=== PATIENT | male | born 1985 | race Two or more races ===

== ENCOUNTER 2024-03-15 09:11 | Emergency (ER) | payer OTHER ==
[~2024-03-15] VITALS: Ht 180.3 cm; Wt 90.7 kg
[2024-03-15 09:56] LABS: CREATININE 0.8 mg/dL (0.5-1.3); POTASSIUM 3.8 mmol/L (3.5-5.1)
[2024-03-15 09:59] LABS: HEMATOCRIT 49.2 % (42-54); MEAN CORPUSCULAR HEMOGLOBIN 27.4 pg (27.0-33.0); MEAN CORPUSCULAR HGB CONC 33.7 g/dL (32.0-36.0); MEAN CORPUSCULAR VOLUME 81.2 fL (79-99); RED BLOOD CELL COUNT(AUTO) 6.06 MIL/uL (4.50-6.20); RED CELL DISTRIBUTION WIDTH 12.9 % (11.0-15.5); WHITE BLOOD COUNT (AUTO) 5.7 K/uL (4.8-10.8)
[2024-03-15] MEDS: MORPHINE 4 MG SYG IVP ONE (10:10)
[2024-03-15] MEDS: ONDANSETRON 4MG INJ IVP ONE (10:10)
[2024-03-15] MEDS ORDERED: METH4TAB3 PO (12:20)
[2024-03-15] MEDS ORDERED: DOCU-116 PO (12:20)
[2024-03-15 12:21] VITALS: BP 124/91; PULSE 83; RESP 16; O2SAT 98
[2024-03-15] MEDS: KETOROLAC 30MG VIAL (30MG/ML) IVP ONE (12:21)
== END 2024-03-15 12:30 | disposition home or self-care (01) ==
LOC: EDH 09:11
DX: K62.89 Other specified diseases of anus and rectum (principal); K57.30 Diverticulosis of large intestine without perforation or abscess without bleeding
CPT/HCPCS: 99285; 96374; 72193; 96375; 82270; 80048; 85027; 36415; J2405; J2270; J1885

== ENCOUNTER 2024-04-11 07:49 | Day surgery (SDC) | payer OTHER ==
[2024-04-11] VITALS (13 sets, daily range): BP systolic 113–145; BP diastolic 71–98; PULSE 66–82; RESP 15–16
[~2024-04-11] VITALS: Ht 180.3 cm; Wt 89.4 kg
[2024-04-11] MEDS: 0.9%NACL 1000ML 1,000 ML IV ONE (08:45)
[2024-04-11] MEDS ORDERED: PROPOFOL 10 MG/ML 20ML VIAL IV ONE (10:50)
== END 2024-04-11 12:20 | disposition home or self-care (01) ==
LOC: ENDO 07:49 → DAH 07:49 → ENDO 12:20
PROVIDERS: ATTEND Internal Medicine Gastroenterology
DX: R93.2 Abnormal findings on diagnostic imaging of liver and biliary tract (principal); K62.89 Other specified diseases of anus and rectum; K92.1 Melena; K64.0 First degree hemorrhoids; K62.1 Rectal polyp
CPT/HCPCS: 45338; 45331; J7030; J2704; A4620; A4215 ×2; A4223; A4222; A4221; A4663; A4606; J3490

== ENCOUNTER 2024-07-26 08:08 | Day surgery (SDC) | payer OTHER ==
[~2024-07-26] VITALS: Ht 180.3 cm; Wt 89.4 kg
[2024-07-26] VITALS (11 sets, daily range): BP systolic 113–141; BP diastolic 60–95; PULSE 66–81; RESP 14–16; TEMP 97.1–97.8
[2024-07-26] MEDS: 0.9%NACL 1000ML 1,000 ML IV ONE (08:45)
[2024-07-26] MEDS ORDERED: DILTIAZEM 2% TP (08:58)
[2024-07-26] MEDS ORDERED: BOTULINUM TOXIN TYPE A 100 UNITS/VIAL INJ ONE (09:08)
[2024-07-26] MEDS ORDERED: LIDOCAINE PF 100MG/5ML (2%) SYRINGE 5ML ONE (09:29)
[2024-07-26] MEDS ORDERED: proPOFol 10 MG/ML 20ML VIAL IV ONE ×2 (09:29)
== END 2024-07-26 10:54 | disposition home or self-care (01) ==
LOC: DAH 08:08
PROVIDERS: ATTEND Surgery
DX: K60.0 Acute anal fissure (principal); K62.89 Other specified diseases of anus and rectum
CPT/HCPCS: 45330; 45335; A4606; J0585; J2001; J2704; J7030; A4215; A4221; A4222; A4223; A4615; A4663; J3490

== ENCOUNTER 2024-10-06 20:42 | Emergency (ER) | payer OTHER ==
[~2024-10-06] VITALS: Ht 180.3 cm; Wt 93.4 kg
[~2024-10-06 20:42] MED LIST: DILTIAZEM 2% TP
--- NOTE | 2024-10-06 20:47 | NUR ---
UA CUP PROVIDED
[2024-10-06 21:51] LABS: BASOPHILS # (AUTO) 0.04 K/uL (0.00-0.20); BASOPHILS % (AUTO) 0.5 % (0.0-5.0); EOSINOPHILS # (AUTO) 0.27 K/uL (0.00-0.70); EOSINOPHILS % (AUTO) 3.7 % (0.0-8.0); HEMATOCRIT 44.9 % (42-54); IMMATURE GRANULOCYTE ABSOLUTE 0.01 K/uL (0-1); LYMPHOCYTES # (AUTO) 1.9 K/uL (1.0-4.8); LYMPHOCYTES % (AUTO) 26.3 % (21.0-51.0); MEAN CORPUSCULAR HEMOGLOBIN 27.2 pg (27.0-33.0); MEAN CORPUSCULAR HGB CONC 34.1 g/dL (32.0-36.0); MEAN CORPUSCULAR VOLUME 79.8 fL (79-99); MONOCYTES # (AUTO) 0.7 K/uL (0.1-1.0); MONOCYTES % (AUTO) 9.5 % (3.0-13.0); NEUTROPHILS # (AUTO) 4.4 K/uL (1.8-7.7); NEUTROPHILS % (AUTO) 59.9 % (40.0-77.0); PLATELET COUNT (AUTO) 299 K/uL (130-400); RED BLOOD CELL COUNT(AUTO) 5.63 MIL/uL (4.50-6.20); RED CELL DISTRIBUTION WIDTH 12.5 % (11.0-15.5); WHITE BLOOD COUNT (AUTO) 7.3 K/uL (4.8-10.8)
[2024-10-06 21:56] VITALS: BP 145/81; PULSE 88; RESP 16; TEMP 98.3; O2SAT 98
--- NOTE | 2024-10-06 21:56 | HMCIMG ---
CT HEAD/BRAIN W/O CONTRAST CLINICAL HISTORY: persistent dizziness with headache COMPARISON: None TECHNIQUE: Multiple sequential axial images of the head were obtained from the base of the skull through vertex. CT was performed with one or more of the following dose reduction techniques: automated exposure control, adjustment of the mA and/or kV according to patient size, or use of iterative reconstruction technique FINDINGS: The brain parenchyma and CSF spaces are unremarkable. The orbital contents, paranasal sinuses and mastoid air cells are within normal limits. The calvarium is intact. IMPRESSION: Normal study
[2024-10-06 22:06] LABS: CREATININE 0.9 mg/dL (0.5-1.3); POTASSIUM 3.8 mmol/L (3.5-5.1)
[2024-10-06] MEDS ORDERED: MECL-302 PO (22:17)
[2024-10-06] MEDS ORDERED: KETO10TA2 PO (22:17)
--- NOTE | 2024-10-06 22:17 | ERN ---
General Chief Complaint: Dizzy/Light Headed Stated Complaint: DIZZINESS, HEADACHE Time Seen by MD: 20:47 Time Seen by Midlevel: 20:47 Source: patient History of Present Illness Initial Comments Patient is a 39-year-old male with no significant past medical history presenting to the emergency department with dizziness and a frontal headache. Patient states that his symptoms started four days ago after flying to [place]. The symptoms started after he landed. Initially the symptoms started with right ear pain and then they progressed into a frontal headache followed by dizziness. The dizziness is worse with head movement. He denies any vision changes, nausea, vomiting, or any other symptoms at this time. Allergies: Coded Allergies: No Known Drug Allergies (Unverified Allergy, Unknown, 03/15/24) Home Meds Active Scripts Meclizine HCl (Meclizine HCl) 25 Mg Tablet, 25 MG PO BID for vertigo for 7 Days, #14 TAB 0 Refills Prov:ARLETTE LAWSON 10/06/24 Ketorolac Tromethamine (Ketorolac Tromethamine) 10 Mg Tablet, 10 MG PO BID for 5 Days, #1 TAB Prov:ARLETTE LAWSON 10/06/24 Reported Medications [Diltiazem [place] 2%] No Conflict Check, 2 OINT TP TID 07/26/24 Past Medical History Past Medical History: No Pertinent History Past Surgical History: Other Surgical History Other: RECTAL SX ROS Dictation CONSTITUTIONAL: Negative except for HPI HEAD/FACE: Negative except for HPI EENT: Negative except for HPI RESPIRATORY: Negative except for HPI GASTROINTESTINAL/ABDOMINAL: Negative except for HPI GENITOURINARY: Negative except for HPI MUSCULOSKELETAL: Negative except for HPI INTEGUMENTARY: Negative except for HPI NEUROLOGICAL/PSYCH: Negative except for HPI HEMATOLOGIC/LYMPHATIC: Negative except for HPI All Systems Negative, Except as noted above. 13 point review of systems assessed and all negative except for above. Physical Exam Physical Exam Dictation Vital Signs reviewed General Appearance: Alert, oriented x 3, no acute distress, well developed, nourished. Head and Face: non-traumatic. Eyes: PERRL, pink conjunctivas, eyelid no trauma, anterior chamber with arcus senilis. Ears: Unable to visualize right tympanic membrane secondary to cerumen impaction, left tympanic membrane is visualized and does not show any evidence of infection Nose: No discharge, no bleeding. Oropharynx: Mouth normal, tongue pink, pharynx clear,no erythema, tonsils no exudates, no abscesses noted, mucous membrane moist Neck: Supple, non-tender, no thyromegaly, no masses, no JVD, no bruits Breast:Deferred Chest:No tenderness, no crepitus, no paradoxical movement, no retractions Lungs:Clear, well-ventilated, symmetric, no rales, no wheezing, no rhonchi, no stridor, good breath sounds bilaterally Heart: Regular rate, regular rhythm, no murmur, no gallops Vascular: no peripheral edema, Abdomen: Soft, positive bowel sounds, nondistended, no guarding, nontender, no rebound, no masses no hepatomegaly, no splenomegaly, no Power's sign, no hernias. Rectal: Deferred Genital: Deferred Neurological: Normal speech, motor function intact, sensory function intact Musculoskeletal: Neck nontender, full range of motion, back nontender, full range of motion, Extremities: nontender, full range of motion Skin: Color pink, dry, no turgor, no rash, no lacerations, no abrasions, no contusions. Lymphatic: Deferred Results Laboratory and Microbiology Lab and Micro Result Laboratory Tests Test 10/06/24 21:43 White Blood Count 7.3 K/uL (4.8-10.8) Red Blood Count 5.63 MIL/uL (4.50-6.20) Hemoglobin 15.3 g/dL (14.0-18.0) Hematocrit 44.9 % (42-54) Mean Corpuscular Volume 79.8 fL (79-99) Mean Corpuscular Hemoglobin 27.2 pg (27.0-33.0) Mean Corpuscular Hemoglobin Concent 34.1 g/dL (32.0-36.0) Red Cell Distribution Width 12.5 % (11.0-15.5) Platelet Count 299 K/uL (130-400) Mean Platelet Volume 9.3 fL (7.5-10.5) Immature Granulocyte % (Auto) 0.1 % (0-1) Neutrophils (%) (Auto) 59.9 % (40.0-77.0) Lymphocytes (%) (Auto) 26.3 % (21.0-51.0) Monocytes (%) (Auto) 9.5 % (3.0-13.0) Eosinophils (%) (Auto) 3.7 % (0.0-8.0) Basophils (%) (Auto) 0.5 % (0.0-5.0) Neutrophils # (Auto) 4.4 K/uL (1.8-7.7) Lymphocytes # (Auto) 1.9 K/uL (1.0-4.8) Monocytes # (Auto) 0.7 K/uL (0.1-1.0) Eosinophils # (Auto) 0.27 K/uL (0.00-0.70) Basophils # (Auto) 0.04 K/uL (0.00-0.20) Absolute Immature Granulocyte (auto 0.01 K/uL (0-1) Nucleated Red Blood Cells 0.0 % (0.0-0.19) Sodium Level 142 mmol/L (136-145) Potassium Level 3.8 mmol/L (3.5-5.1) Chloride Level 105 mmol/L (101-111) Carbon Dioxide Level 30 mmol/L (21-32) Blood Urea Nitrogen 7 mg/dL (7-18) Creatinine 0.9 mg/dL (0.5-1.3) Glomerular Filtration Rate Calc 111 mL/min (>90) Random Glucose 92 mg/dL (70-105) Total Calcium 8.7 mg/dL (8.5-10.1) Labs Reviewed?: Yes MDM MDM: Patient is a 39-year-old male with no significant past medical history presenting to the emergency department with dizziness and a frontal headache. Patient states that his symptoms started four days ago after flying to [place]. The symptoms started after he landed. Initially the symptoms started with right ear pain and then they progressed into a frontal headache followed by dizziness. The dizziness is worse with head movement. He denies any vision changes, nausea, vomiting, or any other symptoms at this time. On physical examination patient is in no acute distress. Patient is alert and oriented x4 with a GCS of 15. His ENT examination is remarkable for a right cerumen impaction. However, given his clinical presentation of dizziness and a headache a CT scan of the head was ordered to rule out any intracranial abno rmality. His CBC and chemistries are unremarkable. His CT scan does not show any acute injury or abnormality. Patient was given meclizine in the ER and does report feeling improved. I advised the patient that this may be related to his cerumen impaction. He will need to see his primary care doctor and possibly Neurology for outpatient evaluation. Patient agrees with plan and is comfortable for discharge at this time. Differential diagnosis: Vertigo, cerumen impaction, intracranial bleed There are no social concerns with this patient. Prescription drug management Prescriptions will include: None Medical management and examination interpretation discussions were had by me with other qualified healthcare professionals as indicated for the patient's c are. ED Course Orders Procedure Category Date Status Time Cbc With Differential LAB 10/06/24 Complete 21: Basic Metabolic Panel LAB 10/06/24 Complete 21: Ct Head/Brain W/O CT 10/06/24 Resulted Contrast 21: Ketorolac PHA 10/06/24 Complete Tromethamine 30mg/Ml 22:30 Meclizine Hcl 25 Mg PHA 10/06/24 Complete (Antivert 25 Mg) 22:30 Current Medications Medications (Trade) Dose Ordered Sig/Christos Route PRN Reason Start Time Stop Time Status Last Admin Dose Admin Ketorolac Tromethamine (toRADol) 30 mg ONCE ONCE IM 10/06/24 22:30 10/06/24 22:31 DC 10/06/24 22:20 Meclizine HCl (ANTIvert 25 mg) 25 mg ONCE ONCE PO 10/06/24 22:30 10/06/24 22:31 DC 10/06/24 22:20 Vital Signs Date Time Temp Pulse Resp B/P (MAP) Pulse Ox O2 Delivery O2 Flow Rate FiO2 10/06/24 21:56 98.2 88 16 145/81 98 Room Air* 0 21 10/06/24 20:44 97.5 92 16 151/96 100 Room Air [place] [id number] [place] [id number] IMAGING REPORT Signed PATIENT: JEFFRY EMERSON MR#: [id number] : 1985 SEX: M AGE: 39 LOCATION: [facility] ORDER 00 STATUS: REG ER REPORT#: [id number] SERVICE 00 REASON: persistent dizziness with headache ORDERING PHYSICIAN: ARLETTE LAWSON PROCEDURE: HEAD WO - CT HEAD/BRAIN W/O CONTRAST CT HEAD/BRAIN W/O CONTRAST CLINICAL HISTORY: persistent dizziness with headache COMPARISON: None TECHNIQUE: Multiple sequential axial images of the head were obtained from the base of the skull through vertex. CT was performed with one or more of the following dose reduction techniques: automated exposure control, adjustment of the mA and/or kV according to patient size, or use of iterative reconstruction technique FINDINGS: The brain parenchyma and CSF spaces are unremarkable. The orbital contents, paranasal sinuses and mastoid air cells are within normal limits. The calvarium is intact. IMPRESSION: Normal study DICTATED BY: VANI JON DO DATE: 10/06/242152 ELECTRONICALLY SIGNED BY: VANI JON DO DATE: 10/06/242155 DX & DISP Disposition: Discharge Departure Impression: Primary Impression: Tension headache Additional Impression: Vertigo Condition: Stable Scripts Meclizine HCl (Meclizine HCl) 25 Mg Tablet 25 MG PO BID for vertigo for 7 Days, #14 TAB 0 Refills Prov: ARLETTE LAWSON 10/06/24 Ketorolac Tromethamine (Ketorolac Tromethamine) 10 Mg Tablet 10 MG PO BID for 5 Days, #1 TAB Prov: ARLETTE LAWSON 10/06/24 Referrals: TIFFANIE LANTIGUA MD (PCP) PRANAV WHARTON MD Time of Disposition: 22:16 I have reviewed the case, and I agree with, Diagnosis and Plan I performed the substantive portion of the visit. I have reviewed and personally made and approve the management plan that is documented in the note by myself or the ARIADNE. I acknowledge for responsibility for the patient's management plan. ARLETTE LAWSON Oct 06, 2024 22:17
[2024-10-06] MEDS: mecliZINE HCL 25 MG TABLET PO ONE (22:20)
[2024-10-06] MEDS: ketOROlac 30MG VIAL (30MG/ML) IM ONE (22:20)
== END 2024-10-06 22:45 | disposition home or self-care (01) ==
LOC: EDH 20:42
DX: G44.209 Tension-type headache, unspecified, not intractable (principal); R42 Dizziness and giddiness; Z79.899 Other long term (current) drug therapy; Z98.890 Other specified postprocedural states
CPT/HCPCS: 99285; 70450; 80048; 85025; 36415; 96372; J1885

== ENCOUNTER 2024-10-08 15:02 | Emergency (ER) | payer OTHER ==
[~2024-10-08] VITALS: Ht 180.3 cm; Wt 93.4 kg
[~2024-10-08 15:02] MED LIST changes: +KETO10TA2 PO; +MECL-302 PO
[2024-10-08] MEDS ORDERED: MECL-262 PO (15:41)
--- NOTE | 2024-10-08 15:41 | ERN ---
General Chief Complaint: Earache Stated Complaint: EAR PAIN Time Seen by MD: 15:04 Source: patient History of Present Illness Initial Comments PATIENT IS A 39-YEAR-OLD MALE COMING IN TO BE EVALUATED FOR RIGHT EAR DISCOMFORT. PATIENT STATES HE WAS TOLD HE HAD A CERUMEN IMPACTION HAS BEEN USING DEBROX BUT HAS NOT WORKED. Allergies: Coded Allergies: No Known Drug Allergies (Unverified Allergy, Unknown, 03/15/24) Home Meds Active Scripts Meclizine HCl (Meclizine HCl) 25 Mg Tablet, 25 MG PO BID for vertigo for 7 Days, #14 TAB 0 Refills Prov:ARLETTE LAWSON 10/06/24 Ketorolac Tromethamine (Ketorolac Tromethamine) 10 Mg Tablet, 10 MG PO BID for 5 Days, #1 TAB Prov:ARLETTE LAWSON 10/06/24 Reported Medications [Diltiazem [place] 2%] No Conflict Check, 2 OINT TP TID 07/26/24 Past Medical History Past Medical History: No Pertinent History Past Surgical History: Other Surgical History Other: RECTAL SX ROS Dictation CONSTITUTIONAL: NO CHILLS, NO FEVER, NO WEAKNESS, NO DIAPHORESIS, NO MALAISE. HEAD/FACE: NO SIGNS OF TRAUMA. EENT: NO EYE PAIN, NO BLURRED VISION, NO TEARING, NO DOUBLE VISION, EAR PAIN, NO EAR DISCHARGE, NO NOSE PAIN, NO NASAL CONGESTION, NO THROAT PAIN, NO THROAT SWELLING, NO MOUTH PAIN. RESPIRATORY: NO COUGH, NO ORTHOPNEA, NO SOB, NO STRIDOR, NO WHEEZING. CARDIOVASCULAR: NO CHEST PAIN, NO EDEMA, NO PALPITATIONS, NO SYNCOPE. GASTROINTESTINAL/ABDOMINAL: NO ABDOMINAL PAIN, NO CONSTIPATION, NO DIARRHEA, NO NAUSEA, NO VOMITING. GENITOURINARY: NO ABNORMAL DISCHARGE, NO DYSURIA, NO FREQUENT URINATION, NO HEMATURIA. NO COMPLAINTS OF PAIN IN THE GENITALS. MUSCULOSKELETAL: NO BACK PAIN, NO GOUT, NO JOINT PAIN, NO JOINT SWELLING, NO MUSCLE PAIN, NO MUSCLE STIFFNESS, NO NECK PAIN. INTEGUMENTARY: NO CHANGE IN COLOR, NO CHANGE IN HAIR/NAILS, NO DRYNESS, NO LESION, NO LUMPS, NO RASH. NEUROLOGICAL/PSYCH: NO ANXIETY, NOT DEPRESSED, NO EMOTIONAL PROBLEM, NO HEADACHE, NO NUMBNESS, NO PRE-EXISTING DEFICIT, NO HISTORY OF SEIZURES, NO TREMORS, NO WEAKNESS. HEMATOLOGIC/LYMPHATIC: NOT ANEMIC, NO HISTORY OF BLOOD CLOTS, NO APPARENT BLEEDING, NO BRUISING, GLANDS NOT SWOLLEN. ALL SYSTEMS NEGATIVE, EXCEPT NOTED. Physical Exam Physical Exam Dictation VITAL SIGNS: REVIEWED. GENERAL APPEARANCE: ALERT, ORIENTED X3, NO ACUTE DISTRESS, OBESE. HEAD AND FACE: NON-TRAUMATIC. EYES: PERRL, PINK CONJUNCTIVAS, EYELID NO TRAUMA, ANTERIOR CHAMBER CLEAR. EARS: PINNAS INTACT AND NO SIGNS OF TRAUMA OR ERYTHEMA. EAR CANALS CLEAR AND NO DISCHARGE. RIGHT CERUMEN IMPACTION NOSE: NO DISCHARGE, NO BLEEDING. OROPHARYNX: MOUTH NORMAL, TEETH NO CARIES, TONGUE PINK. PHARYNX CLEAR, NO ERYTHEMA. TONSILS NO EXUDATES, NO ABSCESSES NOTED. MUCOUS MEMBRANE MOIST. NECK: SUPPLE, NON-TENDER, NO THYROMEGALY, NO MASSES, NO JVD, NO BRUITS. BREAST: DEFERRED. CHEST: NO TENDERNESS, NO CREPITUS, NO PARADOXICAL MOVEMENT, NO RETRACTIONS. LUNGS: CLEAR, WELL-VENTILATED, SYMMETRIC, NO RALES, NO WHEEZING, NO RHONCHI, NO STRIDOR, GOOD BREATH SOUNDS BILATERALLY. HEART: REGULAR RATE, REGULAR RHYTHM, NO MURMUR, NO GALLOPS. VASCULAR: NO PERIPHERAL EDEMA. ABDOMEN: SOFT, POSITIVE BOWEL SOUNDS, NONDISTENDED, NO GUARDING, NONTENDER, NO REBOUND, NO MASSES NO HEPATOMEGALY, NO SPLENOMEGALY, NO HAMPTON'S SIGN, NO HERNIAS. RECTAL: DEFERRED. GENITAL: DEFERRED. NEUROLOGICAL: NORMAL SPEECH, GROSS MOTOR FUNCTION INTACT, GROSS SENSORY FUNCTION INTACT. MUSCULOSKELETAL: NECK NONTENDER, FULL RANGE OF MOTION, BACK NONTENDER, FULL RANGE OF MOTION. EXTREMITIES: NONTENDER, FULL RANGE OF MOTION. SKIN: COLOR PINK, DRY, NO TURGOR, NO RASH, NO LACERATIONS, NO ABRASIONS, NO CONTUSIONS. LYMPHATICS: DEFERRED. MDM MDM: DIFFERENTIAL DIAGNOSIS: CERUMEN IMPACTION, EAR PAIN, PATIENT IS A 39-YEAR-OLD MALE COMING IN TO BE EVALUATED FOR RIGHT EAR DISCOMFORT. ON PHYSICAL EXAM THERE IS RIGHT CERUMEN IMPACTION. YOUR WASHINGS WERE ATTEMPTED BUT WERE UNSUCCESSFUL. I ADVISED HIM APPROPRIATE FOLLOW UP WITH ENT WE WILL REFER HIM TO A LOCAL ENT. ED Course Vital Signs Date Time Temp Pulse Resp B/P (MAP) Pulse Ox O2 Delivery O2 Flow Rate FiO2 10/08/24 15:04 98.2 86 18 145/84 99 DX & DISP Disposition: Discharge Departure Impression: Primary Impression: Cerumen impaction Condition: Stable Scripts Meclizine HCl (Antivert) 25 Mg Tab.chew 25 MG PO BID PRN for VERTIGO for 3 Days, #6 TAB.CHEW Prov: CHICHI DIXON MD 10/08/24 Additional Instructions: FOLLOW-UP WITH PRIMARY CARE PROVIDER IN 1 TO 2 DAYS. TAKE MEDICATIONS DIRECTED HERE IN THE EMERGENCY ROOM. OKAY TO CONTINUE HOME MEDICATIONS UNLESS OTHERWISE DISCUSSED DURING YOUR VISIT IN THE EMERGENCY ROOM TODAY. RETURN TO YOUR NEAREST EMERGENCY ROOM IF SYMPTOMS WORSEN OR IF THERE IS NO IMPROVEMENT. C ALL 911 IF YOU NEED IMMEDIATE ASSISTANCE. TAKE TYLENOL [id number] NEEDED AND IF NO CONTRAINDICATIONS ARE PRESENT. INCREASE ORAL HYDRATION. A WOUND CULTURE OR URINE CULTURE WAS ORDERED HERE IN THE EMERGENCY ROOM DEPARTMENT PLEASE FOLLOW-UP WITH PRIMARY CARE PROVIDER AND ADVISE THEM TO GET REPEAT PORTS FROM OUR FACILITY. IF YOU HAD ANY REYNA WRAP/SPLINTS THAT WERE APPLIED HERE, PLEASE DO NOT REMOVE THEM UNTIL YOU SEE YOUR PRIMARY CARE OR SPECIALTY. REFERRALS: Referrals: TIFFANIE LANTIGUA MD (PCP) CLAUDIA KAMARA III, MD Time of Disposition: 15:40 CHICHI DIXON MD Oct 08, 2024 15:41
[2024-10-08] MEDS: dexaMETHasone SOD PHOSPHATE 4 MG/ML 1ML VIAL IM ONE (15:58)
[2024-10-08] MEDS: mecliZINE HCL 25 MG TABLET PO ONE (15:58)
[2024-10-08 15:59] VITALS: BP 132/56; PULSE 71; RESP 20; TEMP 98.5; O2SAT 98
== END 2024-10-08 16:05 | disposition home or self-care (01) ==
LOC: EDH 15:02
DX: H61.21 Impacted cerumen, right ear (principal); Z79.899 Other long term (current) drug therapy
CPT/HCPCS: 99283; 69209; 96372; J1100

== ENCOUNTER 2024-10-10 11:06 | Emergency (ER) | payer OTHER ==
[~2024-10-10] VITALS: Ht 180.3 cm; Wt 90.7 kg
[~2024-10-10 11:06] MED LIST changes: +MECL-262 PO
[2024-10-10 11:59] LABS: BASOPHILS # (AUTO) 0.04 K/uL (0.00-0.20); BASOPHILS % (AUTO) 0.6 % (0.0-5.0); EOSINOPHILS % (AUTO) 1.6 % (0.0-8.0); HEMATOCRIT 44.7 % (42-54); IMMATURE GRANULOCYTE ABSOLUTE 0.01 K/uL (0-1); LYMPHOCYTES % (AUTO) 31.7 % (21.0-51.0); MEAN CORPUSCULAR HEMOGLOBIN 26.8 pg (27.0-33.0); MEAN CORPUSCULAR HGB CONC 33.8 g/dL (32.0-36.0); MEAN CORPUSCULAR VOLUME 79.4 fL (79-99); MONOCYTES # (AUTO) 0.6 K/uL (0.1-1.0); MONOCYTES % (AUTO) 9.7 % (3.0-13.0); NEUTROPHILS # (AUTO) 3.5 K/uL (1.8-7.7); NEUTROPHILS % (AUTO) 56.2 % (40.0-77.0); PLATELET COUNT (AUTO) 321 K/uL (130-400); RED BLOOD CELL COUNT(AUTO) 5.63 MIL/uL (4.50-6.20); RED CELL DISTRIBUTION WIDTH 12.7 % (11.0-15.5); WHITE BLOOD COUNT (AUTO) 6.3 K/uL (4.8-10.8)
[2024-10-10 12:12] LABS: INR 0.99 (0.85-1.15); PROTHROMBIN TIME 10.7 SEC (9.6-11.6)
[2024-10-10 12:13] LABS: CREATININE 1.1 mg/dL (0.5-1.3); PARTIAL THROMBOPLASTIN TIME 26.3 SEC (26.3-35.5); POTASSIUM 3.6 mmol/L (3.5-5.1)
[2024-10-10] MEDS: PROCHLORPERAZINE 10MG/2ML INJ IV ONE (13:38)
[2024-10-10] MEDS: 0.9%NACL 1000ML 1,000 ML IV ONE (13:38)
[2024-10-10] MEDS: DiphenhydrAMINE HCL 50 MG/ML VIAL IV ONE (13:38)
[2024-10-10] MEDS ORDERED: ASPI-1190 PO (15:07)
[2024-10-10] MEDS ORDERED: MECL-302 PO (15:07)
--- NOTE | 2024-10-10 15:09 | ERN ---
General Chief Complaint: Headache Stated Complaint: SEVERE HEADACHE Time Seen by MD: 11:12 Time Seen by Midlevel: 11:12 Source: patient History of Present Illness Initial Comments 39-year-old male who presents to the ED due to a headache onset nine days. Patient reports dizziness but denies any fevers, vomiting or further associated symptoms. Patient reports he was seen here in the ED a few days ago with normal test results. Denies any significant past medical history. Allergies: Coded Allergies: No Known Drug Allergies (Unverified Allergy, Unknown, 03/15/24) Home Meds Active Scripts Aspirin/Acetaminophen/Caffeine (Excedrin Extra Strength Caplet) 250 Mg-250 Mg-65 Mg Tablet, 2 EACH PO Q6H for 7 Days, #28 TAB Prov:MIL ANAYA 10/10/24 Meclizine HCl (Meclizine HCl) 25 Mg Tablet, 25 MG PO BID for vertigo for 7 Days, #30 TAB 0 Refills Prov:MIL ANAYA 10/10/24 Meclizine HCl (Antivert) 25 Mg Tab.chew, 25 MG PO BID PRN for VERTIGO for 3 Days, #6 TAB.CHEW Prov:CHCIHI DIXON MD 10/08/24 Meclizine HCl (Meclizine HCl) 25 Mg Tablet, 25 MG PO BID for vertigo for 7 Days, #14 TAB 0 Refills Prov:ARLETTE LAWSON 10/06/24 Ketorolac Tromethamine (Ketorolac Tromethamine) 10 Mg Tablet, 10 MG PO BID for 5 Days, #1 TAB Prov:ARLETTE LAWSON 10/06/24 Reported Medications [Diltiazem [place] 2%] No Conflict Check, 2 OINT TP TID 07/26/24 Past Medical History Past Medical History: No Pertinent History Past Surgical History: Other Surgical History Other: RECTAL SX ROS Dictation Constitutional: Positive for dizziness Negative for fever,chills, and weight loss Eyes: Negative for injury, pain,redness, and discharge ENT: Negative for injury,pain or swelling Cardiovascular: Negative for chest pain, palpitations, and edema Respiratory: Negative for shortness of breath, cough, and wheezing, Abdomen/GI: Negative for abdominal pain, nausea, vomiting, diarrhea, and co nstipation Back: Negative for injury and pain : Negative for painful urination, bleeding or discharge MS/Extremity: Negative for injury and deformity Skin: Negative for rash, and discoloration Neuro: Positive for headache Negative for weakness, numbness, tingling, and seizure Psych: Negative for suicide ideation, homicidal ideation, and hallucinations Physical Exam Physical Exam Dictation General: awake, alert, no acute distress Head/Face: Normocephalic, atraumatic Eyes: PERRL, EOMI, normal conjunctiva ENT: oral cavity clear, oral mucosa moist Neck: Full range of motion, supple, no tenderness Cardiovascular: RRR, normal S1/S2 Respiratory: CTAB, no respiratory distress Skin: Warm, dry, normal turgor, no rash MS/Extremity: Pulses equal, no cyanosis, neurovascular intact, FROM Neuro: COAx4, GCS 15, strength 5/5, CN 2-12 intact, normal cerebellar exam, normal gait, no neurological deficits Psych: Normal behavior, mood, and affect normal Results Laboratory and Microbiology Lab and Micro Result Laboratory Tests Test 10/10/24 11:40 White Blood Count 6.3 K/uL (4.8-10.8) Red Blood Count 5.63 MIL/uL (4.50-6.20) Hemoglobin 15.1 g/dL (14.0-18.0) Hematocrit 44.7 % (42-54) Mean Corpuscular Volume 79.4 fL (79-99) Mean Corpuscular Hemoglobin 26.8 pg (27.0-33.0) L Mean Corpuscular Hemoglobin Concent 33.8 g/dL (32.0-36.0) Red Cell Distribution Width 12.7 % (11.0-15.5) Platelet Count 321 K/uL (130-400) Mean Platelet Volume 9.2 fL (7.5-10.5) Immature Granulocyte % (Auto) 0.2 % (0-1) Neutrophils (%) (Auto) 56.2 % (40.0-77.0) Lymphocytes (%) (Auto) 31.7 % (21.0-51.0) Monocytes (%) (Auto) 9.7 % (3.0-13.0) Eosinophils (%) (Auto) 1.6 % (0.0-8.0) Basophils (%) (Auto) 0.6 % (0.0-5.0) Neutrophils # (Auto) 3.5 K/uL (1.8-7.7) Lymphocytes # (Auto) 2.0 K/uL (1.0-4.8) Monocytes # (Auto) 0.6 K/uL (0.1-1.0) Eosinophils # (Auto) 0.10 K/uL (0.00-0.70) Basophils # (Auto) 0.04 K/uL (0.00-0.20) Absolute Immature Granulocyte (auto 0.01 K/uL (0-1) Nucleated Red Blood Cells 0.0 % (0.0-0.19) Prothrombin Time 10.7 SEC (9.6-11.6) Prothromb Time International Ratio 0.99 (0.85-1.15) Activated Partial Thromboplast Time 26.3 SEC (26.3-35.5) Sodium Level 141 mmol/L (136-145) Potassium Level 3.6 mmol/L (3.5-5.1) Chloride Level 104 mmol/L (101-111) Carbon Dioxide Level 31 mmol/L (21-32) Blood Urea Nitrogen 9 mg/dL (7-18) Creatinine 1.1 mg/dL (0.5-1.3) Glomerular Filtration Rate Calc 88 mL/min (>90) Random Glucose 109 mg/dL (70-105) H Total Calcium 8.6 mg/dL (8.5-10.1) Total Creatine Kinase 99 U/L (21-232) Labs Reviewed?: Yes MDM MDM: Differential diagnosis: Rationale: 39-year-old male who presents to the ED due to a headache onset nine days. Patient reports dizziness, weakness, but denies any fevers, vomiting or further associated symptoms. Patient reports he was seen here in the ED a few days ago with normal test results. Denies any significant past medical history. Labs obtained are nonspecific. Patient had received a CT head four days ago when seen in the ED. CT head reviewed with unremarkable results. Due to patient not reporting any new symptoms or changes, and normal neurological exam no indication for repeat of head CT. Patient was administered IV fluids, Compazine, Benadryl. On re-examination patient verbalized headache and dizziness had improved. Patient educated on findings and diagnosis. Prescribed medications for outpatient treatment. Advised to follow up with PCP. Return to the ED if any worsening symptoms. Patient verbalized understanding. There are no social concerns with this patient. I independently interpreted the test that were performed, results were reviewed by me and considered findings on radiology if ordered. Medical management and examination interpretation discussions were had by me with other qualified healthcare professionals as indicated for the patient's care. ED Course Orders Procedure Category Date Status Time Cbc With Differential LAB 10/10/24 Complete 11:17 Basic Metabolic Panel LAB 10/10/24 Complete 11:17 Pt And Ptt LAB 10/10/24 Complete 11:17 Creatine Kinase, Total LAB 10/10/24 Complete 11:17 0.9%Nacl 1000ml (Ns PHA 10/10/24 Complete 1000ml) 12:30 Prochlorperazine PHA 10/10/24 Complete 10mg/2ml Inj 12:30 Diphenhydramine Hcl PHA 10/10/24 Complete (Benadryl Inj) 12:30 Current Medications Medications (Trade) Dose Ordered Sig/Christos Route PRN Reason Start Time Stop Time Status Last Admin Dose Admin Diphenhydramine HCl (BENAdryl INJ) 25 mg ONCE ONCE IV 10/10/24 12:30 10/10/24 12:31 DC 10/10/24 13:38 Prochlorperazine Edisylate (Compazine 10mg/ 2ml Inj) 10 mg ONCE ONCE IV 10/10/24 12:30 10/10/24 12:31 DC 10/10/24 13:38 Sodium Chloride 1,000 ml @ 0 mls/hr ONCE ONCE IV 10/10/24 12:30 10/10/24 12:31 DC 10/10/24 13:38 Vital Signs Date Time Temp Pulse Resp B/P (MAP) Pulse Ox O2 Delivery O2 Flow Rate FiO2 10/10/24 15:12 98.6 60 20 122/80 100 Room Air* 0 21 10/10/24 13:51 98.6 66 20 124/88 100 Room Air* 0 21 10/10/24 11:31 98.2 72 16 144/81 100 Room Air 0 DX & DISP Disposition: Discharge Departure Impression: Primary Impression: Tension headache Additional Impression: Vertigo Condition: Stable Scripts Aspirin/Acetaminophen/Caffeine (Excedrin Extra Strength Caplet) 250 Mg-250 Mg-65 Mg Tablet 2 EACH PO Q6H for 7 Days, #28 TAB Prov: MIL ANAYA 10/10/24 Meclizine HCl (Meclizine HCl) 25 Mg Tablet 25 MG PO BID for vertigo for 7 Days, #30 TAB 0 Refills Prov: MIL ANAYA 10/10/24 Additional Instructions: Discharge home. Rest. Follow up with primary care DrDelfino in 24 hours. Return to the ER for any acute changes or worsening symptoms. If any medications were prescribed take as directed. Okay to continue home medications unless otherwise discussed during your visit in the emergency room today. Patient was also advised to follow-up with primary care physician in 1 to 2 days for continued monitoring. Referrals: TIFFANIE LANTIGUA MD (PCP) I participated in the following activities of this patient's care: For this patient encounter, I reviewed the PA or PHOTOGRAPHER documentation, treatment plan, and medical decision making. I did not have [id number] time with this patient. I will sign as the reviewing DrDelfino And agree with the treatment plan and disposition. MIL ANAYA Oct 10, 2024 15:09
[2024-10-10 15:12] VITALS: BP 122/80; PULSE 60; RESP 20; TEMP 98.6; O2SAT 100
== END 2024-10-10 15:14 | disposition home or self-care (01) ==
LOC: EDH 11:06
DX: G44.209 Tension-type headache, unspecified, not intractable (principal); R42 Dizziness and giddiness; Z79.899 Other long term (current) drug therapy
CPT/HCPCS: 99284; 96374; 96375; 82550; 80048; 85025; 85610; 85730; 36415; J1200; J7030; J0780

== ENCOUNTER → 2024-10-24 | Outpatient (CLI) | payer OTHER ==
[~2024-10-24] MED LIST changes: +ASPI-1190 PO; +GADOTERATE MEGLUMINE 10 MMOL/20 ML VIAL IV ONE
--- NOTE | 2024-10-24 16:02 | HMCIMG ---
MR BRAIN WWO CON HISTORY: Headaches COMPARISON: None TECHNIQUE: MRI of the brain was performed utilizing multiple pulse sequences in axial, coronal and sagittal planes. Patient was given 18 cc of Clariscan through intravenous route. FINDINGS: The ventricles and extraventricular CSF spaces are nondilated for patient's age. There is no midline shift, mass effect or herniation. No subacute hemorrhage is seen. No MR evidence of acute infarct is seen in the diffusion weighted images. Cerebellar tonsils are in normal position. No evidence of mucoperiosteal thickening is seen of the visualized paranasal sinuses. No MR evidence of mass lesion or abnormal enhancement is seen. IMPRESSION: 1. No MR evidence of acute infarct is seen in the diffusion weighted images. No mass lesion or abnormal enhancement is seen.
== END | disposition home or self-care (01) ==
LOC: RAH 13:54
PROVIDERS: ATTEND Family Medicine
DX: R51.9 Headache, unspecified (principal); R42 Dizziness and giddiness
CPT/HCPCS: 70553; A9575